=== PATIENT | female | born 1990 | race Caucasian/White ===

== ENCOUNTER 2017-10-15 07:14 | Inpatient (IN) | payer OTHER ==
[~2017-10-15] VITALS: Ht 170.2 cm; Wt 115.5 kg
[2017-10-15] VITALS (18 sets, daily range): BP systolic 115–147; BP diastolic 69–80
[~2017-10-15 07:14] MED LIST: CLARITIN10 MG PO; DOXYCYCLINE HY100 M3 PO; HYDROCODON-ACE1 EAC7 PO; MOTRIN800 MG PO; PROTONIX20 MG PO; SPRINTEC1 EACH PO
[2017-10-15] MEDS ORDERED: IRON325 M1 PO (08:14)
[2017-10-15] MEDS ORDERED: PROCARDIA XL30 MG PO (08:14)
[2017-10-15] MEDS ORDERED: ZANTAC150 MG PO (08:15)
[2017-10-15] MEDS ORDERED: PRENATAL TABLE1 EAC3 PO (08:15)
[2017-10-15 10:21] LABS: EOSINOPHIL (%) 1.5 % (0-5); EOSINOPHIL COUNT 0.1 K/uL (0-0.3); HEMATOCRIT 33.7 % (36.0-46.0); IMMATURE GRANULOCYTE (%) 0.3 % (0.0-0.7); INSTRUMENT ABS NEUTROPHIL CT 3.7 K/uL; LYMPHOCYTE COUNT 1.4 K/uL (1.0-2.8); MCH 24.5 PG (29.0-34.0); MCHC 32.9 G/DL (30.0-36.0); MCV 74.4 FL (83-99); MEAN PLAT.VOLUME 10.9 uM^3 (9.5-12.4); MONOCYTE (%) 11.7 % (3-12); MONOCYTE COUNT 0.7 K/uL (0-0.8); NEUTROPHIL (%) 62.9 % (45-76); NEUTROPHIL COUNT 3.7 K/uL (1.8-6.4); PLATELET COUNT 247 K/uL (156-360); RBC DIS.WIDTH-CV 16.6 % (11.8-14.6); RBC DIS.WIDTH-SD 44.3 % (39-53); RED BLOOD COUNT 4.53 M/uL (3.80-5.20); WHITE BLOOD COUNT 5.9 K/uL (4.1-10.2)
[2017-10-16 00:41] VITALS: BP 108/63
[2017-10-16 03:18] VITALS: BP 131/77
[2017-10-16 07:00] VITALS: BP 126/70
[2017-10-16 07:20] LABS: EOSINOPHIL (%) 0 % (0-5); HEMATOCRIT 30.4 % (36.0-46.0); IMMATURE GRANULOCYTE (%) 0.6 % (0.0-0.7); IMMATURE GRANULOCYTE COUNT 0.1 K/uL; INSTRUMENT ABS NEUTROPHIL CT 13.7 K/uL; LYMPHOCYTE COUNT 1.6 K/uL (1.0-2.8); MCH 24.3 PG (29.0-34.0); MCHC 33.2 G/DL (30.0-36.0); MCV 73.3 FL (83-99); MEAN PLAT.VOLUME 10.8 uM^3 (9.5-12.4); MONOCYTE (%) 9.5 % (3-12); MONOCYTE COUNT 1.6 K/uL (0-0.8); NEUTROPHIL (%) 80.6 % (45-76); NEUTROPHIL COUNT 13.7 K/uL (1.8-6.4); PLATELET COUNT 253 K/uL (156-360); RBC DIS.WIDTH-CV 16.5 % (11.8-14.6); RBC DIS.WIDTH-SD 43.4 % (39-53); RED BLOOD COUNT 4.15 M/uL (3.80-5.20)
[2017-10-16 16:00] VITALS: BP 128/79
[2017-10-17 07:04] VITALS: BP 120/74
[2017-10-17 10:25] VITALS: BP 131/81
[2017-10-17 15:34] VITALS: BP 127/73
== END 2017-10-17 16:48 | disposition home or self-care (01) | DRG 774 ==
LOC: LDRP-OP 07:14 → 2WEST 07:15 → LDRP-OP 11-17 12:51
PROVIDERS: Advanced Practice Midwife
PROC: 3E033VJ Introduction of Other Hormone into Peripheral Vein, Percutaneous Approach (ICD-10-PCS; principal; 2017-10-15)
PROC: 10907ZC Drainage of Amniotic Fluid, Therapeutic from Products of Conception, Via Natural or Artificial Opening (ICD-10-PCS; 2017-10-15)
PROC: 10E0XZZ Delivery of Products of Conception, External Approach (ICD-10-PCS; 2017-10-15)
DX: O10.92 Unspecified pre-existing hypertension complicating childbirth (principal); O40.3XX0 Polyhydramnios, third trimester, not applicable or unspecified; O24.420 Gestational diabetes mellitus in childbirth, diet controlled; O69.81X0 Labor and delivery complicated by cord around neck, without compression, not applicable or unspecified; O99.214 Obesity complicating childbirth; E66.9 Obesity, unspecified; Z68.35 Body mass index [BMI] 35.0-35.9, adult; Z3A.39 39 weeks gestation of pregnancy; Z37.0 Single live birth
CPT/HCPCS: 85025; J7120